=== PATIENT | female | born 1980 | race Caucasian/White ===

== ENCOUNTER → 2020-06-12 08:47 | Outpatient (CLI) | payer OTHER, SELFPAY ==
[2020-06-12 09:46] LABS: Add Manual Diff / Slide Review NO; Basophils Absolute Auto 0 /uL (0-100); Basophils Percent Auto 0.3 % (0-2); Eosinophils Absolute Auto 300 /uL (0-450); Eosinophils Percent Auto 2.7 % (2-4); Hematocrit 42.8 % (36-46); Hemoglobin 14.1 g/dL (12.0-16.0); Lymphocytes Absolute Auto 3200 /uL (1100-4500); Lymphocytes Percent Auto 28.6 % (25-40); Mean Corpuscular Hemoglobin 29.9 PG (26-34); Mean Corpuscular Volume 90.5 fL (80-100); Monocytes Absolute Auto 700 /uL (0-900); Monocytes Percent Auto 6.3 % (3-14); Neutrophils Absolute Auto 7000 /uL (1500-7000); Neutrophils Percent Auto 62.1 % (50-75); Platelet Count 275 X10^3/uL (150-400); Red Blood Cell Count 4.73 X10^6/uL (4.0-5.2); Red Cell Distribution Width 13.3 % (11.6-14.8); White Blood Cell Count 11.3 X10^3/uL (4.5-11.0)
[2020-06-12 10:45] LABS: Alanine Aminotransferase 26 IU/L (<35); Albumin 4.1 g/dL (3.5-5.0); Albumin Globulin Ratio 1.2 (1.0-2.8); Alkaline Phosphatase 55 U/L (38-126); Aspartate Aminotransferase 22 IU/L (14-36); Bilirubin Total 0.3 mg/dL (0.2-1.3); Blood Urea Nitrogen 18 mg/dL (7-17); Calcium 9.2 mg/dL (8.4-10.2); Carbon Dioxide 28 mmol/L (22-32); Chloride 104 mmol/L (98-107); Cholesterol 219 mg/dL (140-199); Estimated Glomerular Filt Rate > 60.0 mL/min (>60); Globulin 3.5 g/dL (1.7-4.1); Glucose 102 mg/dL (70-100); HDL Cholesterol 53 mg/dL (40-60); HEMOLYSIS < 15 (0-50); LDL Cholesterol Calculated 139 mg/dL (<100); Potassium 4.4 mmol/L (3.4-5.1); Sodium 138 mmol/L (137-145); Total Protein 7.6 g/dL (6.3-8.2); Triglycerides 136 mg/dL (35-150)
[2020-06-12 10:58] LABS: Free T4, Direct Thyroxine 0.88 ng/dL (0.78-2.19)
[2020-06-12 11:12] LABS: Thyroid Stimulating Hormone 2.02 uIU/mL (0.47-4.68)
== END ==
PROVIDERS: Family Provider Family Medicine; PCP Registered Nurse; Referring Provider Registered Nurse; Visit Provider Registered Nurse
DX: E03.9 Hypothyroidism, unspecified (principal); R22.1 Localized swelling, mass and lump, neck; Z82.49 Family history of ischemic heart disease and other diseases of the circulatory system
CPT/HCPCS: 36415; 80053; 80061; 84439; 84443; 85025

== ENCOUNTER → 2020-07-24 12:10 | Outpatient (CLI) | payer OTHER, SELFPAY ==
--- NOTE | 2020-07-24 12:12 | DI.MG.S_ITS ---
BILATERAL DIGITAL SCREENING MAMMOGRAM 3D/2D WITH CAD: 07/24/2020 CLINICAL: Routine screening. Baseline exam. No prior exams were available for comparison. There are scattered fibroglandular elements in both breasts. Current study was also evaluated with a Computer Aided Detection (CAD) system. No significant masses, calcifications, or other findings are seen in either breast. IMPRESSION: NEGATIVE There is no mammographic evidence of malignancy. A 1 year screening mammogram is recommended. This exam was interpreted at Station ID: [id number]. NOTE: For mammograms, a report in lay terms will be sent to the patient. Approximately 15% of breast malignancies will not be visualized mammographically. In the management of a palpable breast mass, a negative mammogram must not discourage biopsy of a clinically suspicious lesion. Electronically Signed By: Tres noble/jordon:07/24/2020 16:08:05 letter sent: Normal Exam ACR BI-RADS Category 1: Negative 3341F
== END ==
PROVIDERS: Family Provider Family Medicine; PCP Registered Nurse; Referring Provider Registered Nurse; Visit Provider Registered Nurse
DX: Z12.31 Encounter for screening mammogram for malignant neoplasm of breast (principal)
CPT/HCPCS: 77063; 77067

== ENCOUNTER → 2020-07-24 12:13 | Outpatient (CLI) | payer OTHER, SELFPAY ==
--- NOTE | 2020-07-24 12:14 | DI.US.S_ITS ---
PROCEDURE: US THYROID INDICATIONS: LEFT NECK LUMP TECHNIQUE: Real-time scanning was performed of the thyroid gland, with image documentation. COMPARISON: None. FINDINGS: Right: Thyroid lobe measures 3.5 x 1.3 x 1.2 cm, and is homogeneous in echotexture. Left: Thyroid lobe measures 4.3 x 1.3 x 1.2 cm, and is homogenous in echotexture. Isthmus: 4.5 mm thick. IMPRESSION: Normal thyroid. Dictated by: Abdirizak DRIVER Interpreted: Isrrael Moura MD on 07/24/2020 at 14:30 Approved by: Isrrael Moura M.D. on 07/24/2020 at 15:07
== END ==
PROVIDERS: Family Provider Family Medicine; PCP Registered Nurse; Referring Provider Registered Nurse; Visit Provider Registered Nurse
DX: E03.9 Hypothyroidism, unspecified (principal); R22.1 Localized swelling, mass and lump, neck
CPT/HCPCS: 76536

== ENCOUNTER → 2022-02-11 10:45 | Outpatient (CLI) | payer OTHER, SELFPAY ==
--- NOTE | 2022-02-11 | DI.MG.S_ITS ---
BILATERAL DIGITAL SCREENING MAMMOGRAM 3D/2D WITH CAD: 02/11/2022 CLINICAL: Routine screening. Comparison is made to exam dated: 07/24/2020 mammogram - . There are scattered fibroglandular elements in both breasts. Current study was also evaluated with a Computer Aided Detection (CAD) system. No significant masses, calcifications, or other findings are seen in either breast. There has been no significant interval change. IMPRESSION: NEGATIVE There is no mammographic evidence of malignancy. A 1 year screening mammogram is recommended. Based on the Tyrer Cuzick model (a risk assessment model) the patient's lifetime risk is 11.0% and her 10 year risk is 1.8%. According to the ACR, ACS, and NCCN guidelines, an annual breast MRI exam along with mammogram is recommended if the patient's lifetime risk is 20% or greater. This exam was interpreted at Station ID: [id number]. NOTE: For mammograms, a report in lay terms will be sent to the patient. Approximately 15% of breast malignancies will not be visualized mammographically. In the management of a palpable breast mass, a negative mammogram must not discourage biopsy of a clinically suspicious lesion. Electronically Signed By: Vincent herman/jordon:02/11/2022 12:17:22 letter sent: Normal Exam ACR BI-RADS Category 1: Negative 3341F
== END ==
PROVIDERS: Family Provider Family Medicine; Referring Provider Physician Assistant Medical; Visit Provider Physician Assistant Medical
DX: Z12.31 Encounter for screening mammogram for malignant neoplasm of breast (principal)
CPT/HCPCS: 77063; 77067

== ENCOUNTER → 2022-04-08 10:58 | Outpatient (CLI) | payer OTHER, SELFPAY ==
[2022-04-08 11:29] LABS: COVID19 -Nasal RAPID Negative (Negative)
== END ==
PROVIDERS: Family Provider Family Medicine; Visit Provider Obstetrics & Gynecology
DX: Z01.812 Encounter for preprocedural laboratory examination (principal); Z20.822 Contact with and (suspected) exposure to COVID-19
CPT/HCPCS: 87635

== ENCOUNTER 2022-04-08 11:07 | Day surgery (SDC) | payer OTHER, SELFPAY ==
[2022-04-05 10:12] VITALS: BMI 33.2
--- NOTE | 2022-04-08 | PATH_ITS ---
[facility] Accession Number: [id number] . 01 Material submitted: . cervix - CERVICAL CONE BIOPSY, SUTURE AT 1 O'CLOCK . 01 Diagnosis: Cervical Cone Biopsy with Suture at 1 o'clock: Focal, mild involvement by low-grade squamous intraepithelial lesion / JOSE ALEJANDRO-1 is present in the 9 to 12 o'clock quadrant. The ectocervical margin is focally involved by low-grade squamous intraepithelial lesion / JOSE ALEJANDRO-1 in the 9 to 12 o'clock quadrant. The apparent endocervical margin is negative for dysplasia. Patchy mild inflammation is present; no definitive previous biopsy changes identified. Please correlate with clinical and laboratory findings. No invasive tumor identified. Large regions of hyperkeratosis and parakeratosis are present. MRV 04/12/2022 1522 Local . 01 Electronically signed: . Allison Schumacher MD, Pathologist NPI- [id number] . 01 Gross description: . The specimen is received in formalin, labeled with the patient's name and cervical cone biopsy, see chart 1 o'clock, and consists of an oriented, circular fragment of cervix with a suture designating 1 o'clock per the requisition. The specimen measures 1.1 cm from 12 o'clock to 6 o'clock, 1.5 cm from 3 o'clock to 9 o'clock, and is excised to a depth of 0.9 cm. The ectocervix is funk and finely granular while the cervical os is circular, patent, and measures 0.2 cm in diameter. The endocervical margin is inked orange while the remaining stromal margins are inked blue. The specimen is radially sectioned and submitted entirely as follows: A1: 12-3 o'clock. A2: 3-6 o'clock. A3: 6-9 o'clock. A4: 9-12 o'clock. ([id number]) /FRR 04/11/2022 0234 Local . 01 Pathologist provided ICD-10: N87.0 . 01 CPT . 583668 Specimen Comment: A courtesy copy of this report has been sent to [facility] Pathology Performed at: 01 [facility] [address] [place] [address], [place], [place] [id number] MD Ashok Hand MD Phone: [phone]
[2022-04-08] MEDS: LACTATED RINGERS 1,000 ML 100 ML IV (11:47)
[2022-04-08 11:50] VITALS: BP 116/81; PULSE 73; RESP 17; TEMP 36.5; O2SAT 99; BMI 33.2
--- NOTE | 2022-04-08 12:46 | PM.GYNHP.1 ---
History of Present Illness History of Present Illness Narrative: Polina Iqbal is a 42 year old female being admitted for same-day surgery for LEEP procedure for further evaluation of endocervical canal due to unsatisfactory colposcopy. On colposcopy, aceto-white changes noted in the cervical canal which could not be biopsy due to small os. Patient consented to diagnostic LEEP of the cervical canal for further evaluation. She has had persistent JOSE ALEJANDRO 1 for which she underwent cryotherapy of the cervix last year. Colposcopy biopsy of other areas of the cervix, 1 area showed atypia consistent with possible JOSE ALEJANDRO 1. Will thus include other visible aceto-white changes on the ectocervix within LEEP excisional area. [facility] Medical History Abnormal Pap smear of cervix (~2010) Alopecia (~2006) Hypothyroidism Infertility Migraines Surgical History Anesthesia History of gynecological procedure (2020) History of third molar tooth extraction Status post appendectomy (02/24/15) Status post breast reduction (~2005) Status post delivery (~2015) Status post dilation and curettage Family History Brother No problems noted. Father Diabetes mellitus Grandmother History of heart disease Stroke Mother No problems noted. Sister No problems noted. Sister No problems noted. Social History marital status: household members: spouse and children Smoking Status: Current every day smoker alcohol intake: current substance use type: does not use Meds Home Medications and Allergies Allergies Allergy/AdvReac Type Severity Reaction Status Date / Time cephalexin [CEPHALEXIN] Allergy Mild HAND AND Verified 01/14/22 11:07 FEET EDEMA sulfamethoxazole Allergy Mild RASH, Verified 01/14/22 11:07 [SULFAMETHOXAZOLE] JOINT PAIN trimethoprim [TRIMETHOPRIM] Allergy Mild RASH, Verified 01/14/22 11:07 JOINT PAIN Sulfa (Sulfonamide Allergy Unknown Verified 01/14/22 11:07 Antibiotics) [SULFA (SULFONAMIDE ANTIBIOTICS)] Exam Vital Signs (past 8 hours): - 04/08/22 11:50 Temperature 97.7 F Pulse Rate 73 Respiratory Rate 17 Blood Pressure 116/81 Pulse Oximetry 99 Oxygen Delivery Method Room Air Oxygen Delivery Method Room Air Const General: cooperative and healthy appearing [facility] Head: normal to inspection Eyes General: appearance normal, both eyes and all related structures Neck Neck: normal visual inspection Resp Effort & Inspection: normal respiratory effort Cardio Rate: regular rate Skin General: no rashes or lesions noted Neuro General: patient alert, patient awake and patient oriented x3 Extrem General: normal to inspection Objective Labs Labs: urine test negative Assessment & Plan Assessment and plan (1) JOSE ALEJANDRO I (cervical intraepithelial neoplasia I): Status: Acute Assessment & Plan narrative: ASC-H PAP with inadequate colposcopy. Area of aceto-white change seen in cervical canal on colposcopy evaluation, but unable to biopsy/sample the area due to the tight cervical os. I recommended LEEP of the endocervical canal for further evaluation. Due to persistent JOSE ALEJANDRO 1, for which she has had cryotherapy last year for, will also include any other visible areas on the ectocervix in the LEEP, to fully treat--patient does desire excision or treatment for the persistent JOSE ALEJANDRO 1 as well. I reviewed the procedure. Discuss small surgical risk of bleeding, infection, thermal injury to vaginal sidewalls, as well as risk of cervical stenosis. I discuss also risk of incompetent cervix with childbearing, but not applicable she is finished with childbearing. Verbal and written consent obtained. Time Spent With Patient Critical Care time: I spent a total of [] minutes of critical care time on this patient's care today; this time is exclusive of procedural time.
--- NOTE | 2022-04-08 13:53 | SUR.OPER ---
Lithotomy on padded OR bed, head on pillow, arms secured on padded arm boards at <90 degrees abduction. Legs secured in padded yellow fins stirrups.
[2022-04-08] MEDS: LIDOCAINE 1% 20 ML INJ (14:00)
[2022-04-08] MEDS: EPINEPHrine 1 MG/ML 0.2 MG IRR (14:01)
--- NOTE | 2022-04-08 14:19 | PM.OP.1 ---
Operative Date/Time/Diagnoses Date of procedure: 04/08/22 Time of procedure: 14:00 Pre-op diagnosis: 1. ASC-H PAP, inadequate colposcopy with area of aceto-white seen in cervical canal, unable to biopsy. 2. persistent CIN1 Post-op diagnosis: same Procedure & Clinicians Procedure: Loop electrocautery excision procedure of cervix Same procedure as scheduled: Yes Indications: 42-year-old female with history of cryotherapy of the cervix last year to treat persistent JOSE ALEJANDRO 1 had a recent follow-up Pap showing ASCH-H, atypical squamous cells, cannot rule out high-grade KYLER. She underwent repeat evaluation with colposcopy. Biopsy from area on ectocervix showed some atypia, possible JOSE ALEJANDRO 1. There was also some moderate aceto-white change seen in the cervical canal which could not be biopsied due to tight cervical os. I recommended diagnostic LEEP procedure to further evaluate the cervical canal. Will proceed with fully including all visible aceto-white changes on the ectocervix to try to treat the persistent JOSE ALEJANDRO 1. Patient understands the for diagnostic LEEP and desires to proceed with LEEP procedure treating the entire visible changes on the cervix. Surgeon: Isis Buckley Click Yes if Unassisted: Yes Anesthesia Type: General and Local Operative Notes Findings: Aceto-white change seen at 2-3 o'clock at the edge of the cervical os. Also faint area of aceto-white change noted at 7-8 o'clock on mid ectocervix. Closure Type: not applicable Specimen(s): other (Cervical cone specimen, tagged with a suture at 1:00 a.m.) Estimated Blood Loss (mL): 1 Blood products transfused: none Procedure in detail: After being properly identified she was taken the operating room. After an adequate level general anesthesia was obtained she was placed in Alfredo stirrups in the dorsal lithotomy position. External vulva was prepped with iodine. A coated Graves speculum was placed. The vagina and cervix were normal in appearance. Dilute ascetic acid was placed over the entire cervix. There was only the subtle area on the ectocervix noted and otherwise some aceto-white seen at the edge of the cervical os going into the cervical canal. An Allis clamp was used to stabilize the cervix and the cervix was circumferentially infiltrated with 10 mL of 1% lidocaine with epinephrine. The Allis clamp was then removed. A 15 mm x 10 mm loop was placed on the Bovie. Using setting 60/40 cut/coag, Blend 2, a pass was made through the cervix passing from her right to left through the ectocervix, through the cervical os and back out the ectocervix. The cone specimen was then handed off and tagged at 1:00 a.m. with a suture. Inspection of the excisional bed only showed some light bleeding at 7-8 o'clock. A ball-tip was placed on the Bovie and coagulation of the area was performed and hemostasis obtained. The ball tip was then used to lightly treat the entire excisional bed to treat any possible residual HPV. Hemostasis remained. A paced of Monsel's solution was placed to the excisional bed to assure continued hemostasis at home. The procedure was ended. She tolerated the procedure well and went to recovery room in stable condition. Sponge, needle and instrument counts were correct. Complications: none Post-operative Condition: stable Disposition: PACU Plan for aftercare: Discharge home with follow-up appointment in 3-4 weeks
[2022-04-08 14:21] VITALS: BP 109/69; PULSE 76; RESP 16; TEMP 36.3; O2SAT 95
[2022-04-08 14:28] VITALS: BP 106/73; PULSE 64; RESP 16; O2SAT 99
[2022-04-08 14:34] VITALS: BP 109/78; PULSE 66; RESP 14; O2SAT 99
[2022-04-08 14:50] VITALS: BP 108/69; PULSE 61; RESP 16; TEMP 36.5; O2SAT 100
== END 2022-04-08 14:54 | disposition home or self-care (01) ==
LOC: OR 11:08
PROVIDERS: Family Provider Family Medicine; Referring Provider Obstetrics & Gynecology; Visit Provider Obstetrics & Gynecology
PROC: 0UBC7ZZ Excision of Cervix, Via Natural or Artificial Opening (ICD-10-PCS; CPT 57522; principal; 2022-04-08 13:00)
DX: N87.0 Mild cervical dysplasia (principal); Z20.822 Contact with and (suspected) exposure to COVID-19; Z01.812 Encounter for preprocedural laboratory examination
CPT/HCPCS: 57522; 87635; J0171; J1885; J2405; J2704; J3010

== ENCOUNTER → 2023-05-01 14:50 | Outpatient (CLI) | payer OTHER, SELFPAY ==
--- NOTE | 2023-05-01 | DI.MG.S_ITS ---
BILATERAL DIGITAL SCREENING MAMMOGRAM 3D/2D WITH CAD: 05/01/2023 CLINICAL: Routine screening. Comparison is made to exams dated: 02/11/2022 mammogram and 07/24/2020 mammogram - [facility]. There are scattered areas of fibroglandular density in both breasts (category b / 25%-50% glandular tissue). Current study was also evaluated with a Computer Aided Detection (CAD) system. No significant masses, calcifications, or other findings are seen in either breast. There has been no significant interval change. IMPRESSION: NEGATIVE There is no mammographic evidence of malignancy. A 1 year screening mammogram is recommended. Based on the Tyrer Cuzick model (a risk assessment model) the patient's lifetime risk is 11.0% and her 10 year risk is 1.9%. According to the ACR, ACS, and NCCN guidelines, an annual breast MRI exam along with mammogram is recommended if the patient's lifetime risk is 20% or greater. This exam was interpreted at Station ID: [id number]. NOTE: For mammograms, a report in lay terms will be sent to the patient. Approximately 15% of breast malignancies will not be visualized mammographically. In the management of a palpable breast mass, a negative mammogram must not discourage biopsy of a clinically suspicious lesion. Electronically Signed By: Vincent herman/jordon:05/01/2023 15:31:57 letter sent: Normal Exam ACR BI-RADS Category 1: Negative 3341F
== END ==
PROVIDERS: Family Provider Family Medicine; PCP Family Medicine; Referring Provider Family Medicine; Visit Provider Family Medicine
DX: Z12.31 Encounter for screening mammogram for malignant neoplasm of breast (principal)
CPT/HCPCS: 77063; 77067